=== PATIENT | female | born 1960 | race Caucasian/White ===

== ENCOUNTER 2021-02-18 14:38 | Inpatient (IN) | payer SELFPAY ==
[2021-02-18] VITALS (208 sets, daily range): BP systolic 113–128; BP diastolic 76–96; PULSE 90–138; TEMP 98.3–98.9; O2SAT 86–100
[~2021-02-18] VITALS: Ht 175.3 cm; Wt 129.7 kg
--- NOTE | 2021-02-18 15:55 | NUR ---
PATIENT BROUGHT IN BY EMS FROM [facility]. REPORT RECIEVED FROM VET TECH SEBASTIAN. PATIENT IS ALERT AND ORIENTED, AMBULATED TO BED WITHOUT DIFFICULTY. IV TO BILATERAL AC INFUSING HEPARIN AT 1300UNITS AND HOUR AND CARDIZEM 10MG/HR. HEART SOUNDS IRREGULAR, 120, LUNG SOUNDS CLEAR BILATERALLY, BOWEL SOUNDS ACTIVE. BILATERAL +2 PITTING EDEMA TO LOWER EXTREMITIES. REDNESS AND SWELLING NOTED TO LEFT LOWER THIGH. CALL [facility] WITHIN REACH, DR. MCNULTY MADE AWARE OF PATIENT. ALL SAFETY MAINTAINED.
[2021-02-18] MEDS ORDERED: ONE-A-DAY ESSE1 EACH PO (16:09)
[2021-02-18] MEDS ORDERED: NORVASC 5MG5 MG/TAB PO (16:09)
[2021-02-18] MEDS ORDERED: BENICAR40 MG PO (16:10)
[2021-02-18] MEDS ORDERED: IRON CHEWS15 MG PO (16:10)
[2021-02-18] MEDS ORDERED: HCTZ 25MG TAB25 MG PO (16:11)
[2021-02-18 19:05] LABS: PARTIAL THROMBOPLASTIN TIME 143.7 SECONDS (26.0-37.0)
--- NOTE | 2021-02-18 20:00 | NUR ---
Assessment complete. Pt is AXO X3, states she has a headache rated at a 4/10. Pt is sitting up in the bed watching TV at this time and she denies further needs. Call light within reach.
[2021-02-19] VITALS (303 sets, daily range): BP systolic 92–131; BP diastolic 44–84; PULSE 59–100; TEMP 98–99.7; O2SAT 87–100
[2021-02-19 02:40] LABS: BASO % 0.6 % (0.0-2.0); EOS # 0.2 (0.0-0.7); EOS % 2.9 % (0-4.0); GRAN # 4.1 (1.4-6.5); HEMOGLOBIN 11.7 g/dl (12.5-16.0); LYMPH # 1.6 (1.2-3.4); LYMPH % 24.6 % (20.0-51.0); MEAN CELL VOLUME 89 fl (80.0-100.0); MEAN CORPUSCULAR HEMOGLOBIN 28 pg (27.0-31.0); MEAN CORPUSCULAR HGB CONC 32 g/dl (33.0-37.0); MEAN PLATELET VOLUME 9.7 fl (7.4-10.4); MONO # 0.6 (0.1-0.6); MONO % 9.6 % (1.7-9.3); PLATELET COUNT 228 K/mm3 (130-400); RED BLOOD COUNT 4.12 M/mm3 (4.10-5.30); REDCELL DISTRIBUTION WIDTH-CV 13.2 % (11.5-14.5)
[2021-02-19 02:42] LABS: HEMATOCRIT 36.7 % (37.0-47.0)
[2021-02-19 02:54] LABS: ALBUMIN 3.8 gm/dL (3.5-5.0); BILIRUBIN,TOTAL 0.9 mg/dL (0.0-1.0); CALCIUM 9.6 mg/dL (8.4-10.2); CREATININE, serum 2.35 (0.52-1.25); POTASSIUM 3.6 mmol/L (3.4-5.0)
[2021-02-19 02:58] LABS: MAGNESIUM 2.1 mg/dL (1.6-2.3)
[2021-02-19 03:07] LABS: COLLECTION METHOD CLEAN CATCH
[2021-02-19 03:17] LABS: PH 5 (5-8); SQUAMOUS EPITHELIAL 0-2 /hpf; URINE APPEARANCE Hazy; URINE BACTERIA None Seen /hpf; URINE BILIRUBIN Negative (NEGATIVE); URINE BLOOD Negative (NEGATIVE); URINE COLOR Yellow; URINE GLUCOSE Negative (NEGATIVE); URINE KETONE Negative (NEGATIVE); URINE LEUKOCYTE ESTERASE Negative (NEGATIVE); URINE NITRATE Negative (NEGATIVE); URINE PROTEIN(semi-quant) Negative (NEGATIVE); URINE RBC 0-2 /hpf; URINE UROBILINOGEN Negative (NEGATIVE)
[2021-02-19 03:20] LABS: CREATININE, serum 2.35 (0.52-1.25)
[2021-02-19 03:33] LABS: FRACTIONAL EXCRETION OF NA+ 1.5 %
[2021-02-19 05:44] LABS: PARTIAL THROMBOPLASTIN TIME 42.9 SECONDS (26.0-37.0)
--- NOTE | 2021-02-19 07:00 | NUR ---
RECEIVED REPORT FROM CIARAN LARIOS. PT SITTING UP IN BED WATCHING TV. VSS. SEE GTT FLOWSHEET. PT ON RA. CALL LIGHT WITHIN REACH.
--- NOTE | 2021-02-19 07:04 | NUR ---
Bedside shift report given to CIARAN Cazares.
--- NOTE | 2021-02-19 08:57 | NUR ---
JOSÉ LUIS met with the patient to discuss discharge plan. The patient [place] of [place] with her , Behzad (ph#[phone]). She reports independence with ADLs and does not have any DME. The patient's PCP is Dr. Temo Clements and she receives her medications from [facility]. She reports no difficulties obtaining her meds. The patient is listed as self pay. The patient reports that she has [facility]. They need an itemized list of what is being billed and then they pay the bill. JOSÉ LUIS notified financial counseling and admissions. The patient does not have a DPOA-HC and she was not interested in completing one at this time. The patient plans to return home with her upon discharge. No additional needs at this time. *Discharge plan: home with *
--- NOTE | 2021-02-19 10:34 | NUR ---
First visit from the brick carrier. No needs right now.
--- NOTE | 2021-02-19 14:35 | NUR ---
REPORT GIVEN TO CIARAN CORONADO ON MEDICAL. PT TRANSFERRED VIA WC ON RA ON TELEMETRY BOX TO 316. ALL PERSONAL BELONGINGS SENT WITH PT. DAUGHTER ACCOMPANYING PT.
--- NOTE | 2021-02-19 20:00 | NUR ---
Assessment complete. Patient is alert and oriented with no complaints of pain or SOA. HR is currently in the 80's with an irregular rhythm. Lung sounds are clear and bowel sounds audible in all quadrants. Bilateral lower extremity edema present with 1-2+ pitting; patient states this is an improvement. Medication education is provided regarding eliquis and metoprolol administration. Call light in reach, will continue to monitor.
[2021-02-20 00:36] VITALS: BP 121/61; PULSE 104; TEMP 97.3
[2021-02-20 03:50] VITALS: BP 119/61; PULSE 52; TEMP 98.3
[2021-02-20 06:55] LABS: BASO % 0.5 % (0.0-2.0); EOS # 0.1 (0.0-0.7); EOS % 1.9 % (0-4.0); GRAN # 4.2 (1.4-6.5); GRAN % 66.8 % (42.2-75.2); HEMATOCRIT 36.4 % (37.0-47.0); HEMOGLOBIN 11.8 g/dl (12.5-16.0); LYMPH # 1.3 (1.2-3.4); LYMPH % 21.2 % (20.0-51.0); MEAN CELL VOLUME 88 fl (80.0-100.0); MEAN CORPUSCULAR HEMOGLOBIN 29 pg (27.0-31.0); MEAN CORPUSCULAR HGB CONC 32 g/dl (33.0-37.0); MEAN PLATELET VOLUME 10.2 fl (7.4-10.4); MONO # 0.6 (0.1-0.6); MONO % 9.3 % (1.7-9.3); PLATELET COUNT 200 K/mm3 (130-400); RED BLOOD COUNT 4.12 M/mm3 (4.10-5.30); REDCELL DISTRIBUTION WIDTH-CV 13.1 % (11.5-14.5)
[2021-02-20 07:20] LABS: CALCIUM 9.3 mg/dL (8.4-10.2); CREATININE, serum 2.19 (0.52-1.25); POTASSIUM 3.6 mmol/L (3.4-5.0)
--- NOTE | 2021-02-20 07:25 | NUR ---
Patient sitting up in bed awake upon entering the room. Patient denied any pain, discomfort, SOA, or futher needs at this time. Tele reported a 30-40 sec run of a HR in the 180's. Heart rate is currently WNL. GABBIE Dan notified. Will continue to monitor. Call light in reach.
[2021-02-20 08:45] VITALS: BP 117/65; PULSE 69; TEMP 98.7
--- NOTE | 2021-02-20 11:58 | NUR ---
Scheduled medications given, assessment preformed. VSS. Patient took a shower with the assistance of SABRINA Coombs. Patient denies any pain, discomfort, SOA, chest pain, or any further needs at this time. Will continue to monitor. Call light in reach.
[2021-02-20 13:02] VITALS: BP 129/60; PULSE 71; TEMP 97.8
[2021-02-20 16:23] VITALS: BP 113/78; PULSE 70; TEMP 98.6
--- NOTE | 2021-02-20 17:31 | NUR ---
Patient had an uneventful day. Has been resting in bed the majority of the day. Does not C/O any chest pain, discomfort, SOA, or any further needs at this time. VSS. Hanane Grant Will continue to monitor. Call light in reach.
--- NOTE | 2021-02-20 18:20 | NUR ---
Patient complianing of dry nagging cough, hot tea given to patient. Attempted to call GABBIE Boyce about cough drops, no answer. Will pass on to next shift.
--- NOTE | 2021-02-20 18:24 | NUR ---
Cough drops being ordered PRN.
--- NOTE | 2021-02-20 20:30 | NUR ---
Initial shift assessment done- denies pain or SOB, has a dry cough--will give prn cough medicine as ordered.requesting hot tea at this time also. Up to bathroom on own- steady on feet.
[2021-02-20 21:02] VITALS: BP 107/83; PULSE 65; TEMP 99
--- NOTE | 2021-02-20 21:30 | NUR ---
Tele called- patient had a minute or two of HR in 170,s- patient checked and no symptoms/VSS, back to sinus/dyarrythmia rate 70,s,, did call and let Carli CARTWRIGHT know- just continue to monitor
[2021-02-21 00:28] VITALS: BP 142/87; PULSE 97; TEMP 98.1
[2021-02-21 04:10] VITALS: BP 133/79; PULSE 63; TEMP 97.7
--- NOTE | 2021-02-21 05:05 | NUR ---
Quiet night-- Tele on,,HR staying in the 60,s-70.s since the episode of tachycardia earlier in the shift. Resting
[2021-02-21 06:41] LABS: BASO % 0.6 % (0.0-2.0); EOS # 0.2 (0.0-0.7); GRAN # 3.2 (1.4-6.5); GRAN % 59.7 % (42.2-75.2); HEMOGLOBIN 11.5 g/dl (12.5-16.0); LYMPH # 1.4 (1.2-3.4); LYMPH % 26.7 % (20.0-51.0); MEAN CELL VOLUME 87 fl (80.0-100.0); MEAN CORPUSCULAR HEMOGLOBIN 28 pg (27.0-31.0); MEAN CORPUSCULAR HGB CONC 32 g/dl (33.0-37.0); MONO # 0.5 (0.1-0.6); MONO % 9.6 % (1.7-9.3); PLATELET COUNT 201 K/mm3 (130-400); REDCELL DISTRIBUTION WIDTH-CV 12.9 % (11.5-14.5)
[2021-02-21 06:44] LABS: CALCIUM 9.4 mg/dL (8.4-10.2); CREATININE, serum 1.72 (0.52-1.25); HEMATOCRIT 35.8 % (37.0-47.0); POTASSIUM 3.6 mmol/L (3.4-5.0)
--- NOTE | 2021-02-21 07:06 | NUR ---
Patient lying awake in bed at this time. Does not C/O any chest pain, SOA, dicomfort, or futher needs at this time. Will continue to monitor. Call light in reach.
[2021-02-21 08:12] VITALS: BP 126/56; PULSE 69; TEMP 98.1
--- NOTE | 2021-02-21 09:16 | NUR ---
Scheduled medications given, shift assessment preformed. VSS. +2 edema noted on the patient's BLE. Patient is C/O of a dry nagging cough. PRN cough drops and Robutussin available for patient use. PT has dismissed patient from their services, stating that she is independent. Patient denies any chest pain, SOA, discomfort, or futher needs at this time. Will continue to monitor. Call light in reach.
[2021-02-21] MEDS ORDERED: ZYLOPRIM 100MG100 MG PO (11:56)
[2021-02-21] MEDS ORDERED: ASPIRIN 81M81 MG/TA2 PO (11:56)
[2021-02-21] MEDS ORDERED: TAPAZOLE10 MG PO (11:56)
[2021-02-21] MEDS ORDERED: PROTONIX 40MG T40 MG PO (12:01)
[2021-02-21] MEDS ORDERED: LOPRESSOR 550 MG/TAB PO (12:01)
[2021-02-21 12:50] VITALS: BP 117/69; PULSE 68; TEMP 98
--- NOTE | 2021-02-21 13:36 | NUR ---
Produce Department Supervisor attended clinical rounds with the team and patient to discharge home today. Hospitalist discussed discharge medications with patient, who advised she preferred to be discharged on baby aspirin as it is more affordable and she does not have a prescription plan. SW collaborated with Pharmacy and was advised the other medications patient will be discharged on are not very expensive. SW met with patient after rounds and she advised she would be able to afford today's medications and was ready to get home.
--- NOTE | 2021-02-21 13:51 | NUR ---
Patient deemed fit for discharge. Discharge education/instructions given. Patient denies any futher questions or concerns at this time. IV DC'd, catheter intact, no signs of phlebitis. VSS. Patient ambulated out of the building escorted by [facility] staff.
[2021-03-04] MEDS ORDERED: ZYLOPRIM 100MG100 MG PO (10:28)
[2021-03-04] MEDS ORDERED: ASPIRIN 81M81 MG/TA2 PO (10:29)
[2021-03-04] MEDS ORDERED: TAPAZOLE10 MG PO (10:29)
[2021-03-04] MEDS ORDERED: PROTONIX 40MG T40 MG PO (10:30)
[2021-03-04] MEDS ORDERED: LOPRESSOR 550 MG/TAB PO (10:31)
== END 2021-02-21 13:54 | disposition home or self-care (01) | DRG 308 ==
LOC: IMCU 14:38 → ICU 15:39 → MEDICAL 15:39
PROVIDERS: Physician Assistant; ADMIT Hospitalist
PROC: 5A2204Z Restoration of Cardiac Rhythm, Single (ICD-10-PCS; principal; 2021-02-19)
DX: I48.91 Unspecified atrial fibrillation (principal); I50.43 Acute on chronic combined systolic (congestive) and diastolic (congestive) heart failure; N17.9 Acute kidney failure, unspecified; Z68.41 Body mass index [BMI] 40.0-44.9, adult; I11.0 Hypertensive heart disease with heart failure; E21.3 Hyperparathyroidism, unspecified; R05 Cough; E66.01 Morbid (severe) obesity due to excess calories; D64.9 Anemia, unspecified; Z90.49 Acquired absence of other specified parts of digestive tract; Z90.710 Acquired absence of both cervix and uterus; Z88.0 Allergy status to penicillin; Z96.652 Presence of left artificial knee joint
CPT/HCPCS: 99223-AI; 99232-AI; 99239; J1644; J1940; J2704

== ENCOUNTER 2022-02-24 16:18 | Observation (INO) | payer SELFPAY ==
[~2022-02-24] VITALS: Ht 167.6 cm; Wt 125.1 kg
[~2022-02-24 16:18] MED LIST: ASPIRIN 81M81 MG/TA2 PO; BENICAR40 MG PO; HCTZ 25MG TAB25 MG PO; IRON CHEWS15 MG PO; LOPRESSOR 550 MG/TAB PO; NORVASC 5MG5 MG/TAB PO; ONE-A-DAY ESSE1 EACH PO; PROTONIX 40MG T40 MG PO; TAPAZOLE10 MG PO; ZYLOPRIM 100MG100 MG PO
[2022-02-24 16:56] LABS: BASO % 0.4 % (0.0-2.0); EOS # 0.1 K/mm3 (0.0-0.7); EOS % 1.7 % (0.0-4.0); GRAN # 4.8 K/mm3 (1.4-6.5); GRAN % 65.8 % (42.2-75.2); HEMATOCRIT 40.5 % (37.0-47.0); HEMOGLOBIN 13.3 g/dl (12.5-16.0); LYMPH # 1.7 K/mm3 (1.2-3.4); LYMPH % 23.7 % (20.0-51.0); MEAN CELL VOLUME 91 fl (80.0-100.0); MEAN CORPUSCULAR HEMOGLOBIN 30 pg (27-31); MEAN CORPUSCULAR HGB CONC 33 g/dl (33.0-37.0); MONO # 0.6 K/mm3 (0.1-0.6); MONO % 8.1 % (1.7-9.3); PLATELET COUNT 223 K/mm3 (130-400); RED BLOOD COUNT 4.45 M/mm3 (4.10-5.30); REDCELL DISTRIBUTION WIDTH-CV 13.6 % (11.5-14.5)
[2022-02-24 17:13] LABS: ALBUMIN 3.7 gm/dL (3.4-4.8); ANION GAP 12 mmol/L (7-16); BLOOD UREA NITROGEN 27 mg/dL (10-20); CALCIUM 9.6 mg/dL (8.4-10.2); CARBON DIOXIDE 24 mmol/L (23-31); CHLORIDE 106 mmol/L (98-107); CREATININE, serum 1.43 mg/dL (0.57-1.11); GLUCOSE 100 mg/dL (70-99); MAGNESIUM 1.9 mg/dL (1.6-2.6); PHOSPHOROUS 4.1 mg/dL (2.3-4.7); POTASSIUM 4.5 mmol/L (3.5-4.5); SODIUM 142 mmol/L (136-145)
[2022-02-24 17:25] LABS: TROPONIN-I < 0.010 ng/mL (0.00-0.033)
[2022-02-25] VITALS (15 sets, daily range): BP systolic 92–129; BP diastolic 47–96; PULSE 41–90; TEMP 97.6–98.8
[2022-02-25] MEDS ORDERED: TENORMIN 2525 MG/TAB PO (00:20)
[2022-02-25] MEDS ORDERED: TAMBOCOR50 MG PO (00:21)
[2022-02-25] MEDS ORDERED: TESSALON P100 MG/CAP PO (00:22)
[2022-02-25] MEDS ORDERED: LASIX 40MG TABL40 MG PO ×2 (00:22→00:23)
[2022-02-25] MEDS ORDERED: NORCO 325 MG-7.1 TAB PO (00:23)
[2022-02-25] MEDS ORDERED: K-TAB20 PO (00:25)
[2022-02-25] MEDS ORDERED: EUTHYROX175 MCG PO (00:27)
[2022-02-25] MEDS ORDERED: ELIQUIS 5MG PO (00:27)
--- NOTE | 2022-02-25 00:45 | NUR ---
Patient arrived to medical unit from ER at approximately 0020. Patient upset and tearful at first. Stated that she had been sitting in the ER waiting to come to medical floor for 4 hours, and that she had not had anything to eat or drink. Patient given ice water and sandwich box. Patient very thankful. Denies having pain and discomfort at this time. Peripheral INT to right AC. Reports SOB and dyspnea with exertion only. LS CTA. HRI. Telemetry in place: A-fib, 90-110s. Denies chest pain, discomfort, and palpitations. BSAx4. 1+ edema BLE. Med rec completed, and patient reports she has already taken all her HS medications at 2000 while in the ER (took home medications). Patient voices no further questions, needs, or concerns at this time. Patient aware that she is going to have an echo tomorrow. Told patient to stay NPO after she finished her sandwich just in case dispatcher service wanted to order more tests tomorrow, and voiced understanding. Patient in bed with call light within reach.
--- NOTE | 2022-02-25 05:41 | NUR ---
Patient has not had any complaints of pain or discomfort. Remains in A-fib, rate controlled 90-110s. Recieved IV Magnesium per orders. Voices no questions, needs, or concerns at this time. In bed with call light within reach.
[2022-02-25 07:08] LABS: BASO % 0.6 % (0.0-2.0); EOS # 0.2 K/mm3 (0.0-0.7); EOS % 2.8 % (0.0-4.0); GRAN % 62.4 % (42.2-75.2); HEMATOCRIT 39.5 % (37.0-47.0); HEMOGLOBIN 12.6 g/dl (12.5-16.0); LYMPH # 1.6 K/mm3 (1.2-3.4); LYMPH % 25.7 % (20.0-51.0); MEAN CELL VOLUME 94 fl (80.0-100.0); MEAN CORPUSCULAR HEMOGLOBIN 30 pg (27-31); MEAN CORPUSCULAR HGB CONC 32 g/dl (33.0-37.0); MEAN PLATELET VOLUME 10.1 fl (7.4-10.4); MONO # 0.5 K/mm3 (0.1-0.6); MONO % 8.2 % (1.7-9.3); PLATELET COUNT 200 K/mm3 (130-400); RED BLOOD COUNT 4.21 M/mm3 (4.10-5.30); REDCELL DISTRIBUTION WIDTH-CV 13.5 % (11.5-14.5)
[2022-02-25 07:20] LABS: CREATININE, serum 1.43 mg/dL (0.57-1.11); MAGNESIUM 2.3 mg/dL (1.6-2.6); POTASSIUM 4.3 mmol/L (3.5-4.5)
--- NOTE | 2022-02-25 09:46 | NUR ---
Monotype Keyboard Operator met with patient and her , Behzad (ph#[phone]) to discuss discharge planning. Patient lives outside of [place] with her and sees Dr. Clements for primary care. Patient reports she has [facility] for insurance coverage. Patient obtains medications from [facility] and reports some difficulty affording Eloquis. Patient does not use any DME and is independent with ADLS. Patient does not have Advance Directives. Patient plans to return home at time of discharge and is ready to get back to work. 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 Discharge Plan: Home
--- NOTE | 2022-02-25 17:30 | NUR ---
PATIENT HAD A CALM DAY,VSS,ORIENT X4, IV DISCONTINUED PT ON ORAL MEDICATION, FOR POSSIBLE DISCHARGE TOMMORROW.
--- NOTE | 2022-02-25 17:58 | NUR ---
PATIENT ORIENT AND ALERTX4, VSS, PULSE SLGHTLY LOW, CARDIOVERSION DONE TODAY, FOR POSSIBLE DISCHARGE TOMMORROW.
--- NOTE | 2022-02-25 20:30 | NUR ---
Initial shift assessment done- denies pain/SOB, no chest apain, Tele on SR 60/min, alert/oriented, Up to bathroom on own- steady on feet, was given a HS snack. Hoping to go home tomorrow
[2022-02-26 04:14] VITALS: BP 110/63; PULSE 48; TEMP 97.5
--- NOTE | 2022-02-26 05:19 | NUR ---
Quiet night, No changes, no complaints of pain/SOB, HR bradycardic at 45-50 /min during the night, B/P stable,
[2022-02-26 06:49] VITALS: BP 121/63; PULSE 51; TEMP 98.1
[2022-02-26] MEDS ORDERED: CORDARONE200 MG/TAB PO (07:20)
[2022-02-26] MEDS ORDERED: JARDIANCE10 PO (08:57)
== END 2022-02-26 10:30 | disposition home or self-care (01) ==
LOC: COL.ER 16:18 → MEDICAL 20:25
PROVIDERS: Emergency Medicine; Student in an Organized Health Care Education/Training Program; ADMIT Student in an Organized Health Care Education/Training Program
DX: I48.91 Unspecified atrial fibrillation (principal); I13.0 Hypertensive heart and chronic kidney disease with heart failure and stage 1 through stage 4 chronic kidney disease, or unspecified chronic kidney disease; I50.20 Unspecified systolic (congestive) heart failure; N18.9 Chronic kidney disease, unspecified; E89.0 Postprocedural hypothyroidism; I08.2 Rheumatic disorders of both aortic and tricuspid valves
CPT/HCPCS: A9270; G0378; J3475; J7030